=== PATIENT | female | born 1970 | race Caucasian/White ===

== ENCOUNTER 2017-01-11 18:44 | Emergency (ER) | payer OTHER ==
[2017-01-11 18:50] VITALS: TEMP 98.4
--- NOTE | 2017-01-11 19:12 | EDPHY ---
H & P Stated Complaint: mj od HPI/ROS: CHIEF COMPLAINT: Marijuana ingestion, feeling "weird" HISTORY OF PRESENT ILLNESS: Patient arrives by EMS. She is seen at time arrival. She admits to 20 mg of ingestion of marijuana over a period of 4 hours. She took 10 mg of indica marijuana around 12:30p.m. She took 2 additional ingestions over the next 2-3 hours for a total of 20 mg. She said it gradually had her and she began "to feel really weird" at dinner. Difficult for her to quantify or qualify the symptoms. She is having difficulty actually describing how she feels. She does deny headache or chest pain. She denies any unilateral complaints. She denies any previous use of marijuana. She is concerned as she feels unusual and her is feeling worse than she is. No other associated complaints or modifying factors. REVIEW OF SYSTEMS: Ten systems reviewed and are negative unless otherwise noted in the HPI PAST MEDICAL HISTORY: Anxiety PAST SURGICAL HISTORY: None SOCIAL HISTORY: Nonsmoker. Occasional alcohol. Lives in [facility] FAMILY HISTORY: Noncontributory EXAMINATION General Appearance: Alert, no distress Head: normocephalic, atraumatic Eyes: Pupils equal and round, no conjunctival pallor or injection ENT, Mouth: Mucous membranes moist Neck: Normal inspection, supple, non-tender Respiratory: Lungs are clear to auscultation Cardiovascular: Tachycardic rate and regular rhythm. No murmur. Pulses intact distally Gastrointestinal: Abdomen is soft and nontender Back: non-tender, no bony abnormalities Neurological: GCS 15. A&O, nonfocal, normal gait. No pronator drift. No dysmetria. Normal mental status. Skin: Warm and dry, no rash Extremities: Nontender, no pedal edema Psychiatric: Mood and affect normal DIFFERENTIAL DIAGNOSES: Including but not limited to marijuana ingestion, marijuana intoxication, marijuana overdose MDM: 7:00 p.m. Acute marijuana intoxication. Patient reports 20 mg indicate ingestion over a period of 4 hours. She is naive to marijuana. She is in no acute distress with mild tachycardia. She reports feeling somewhat anxious but denies any other specific complaints. Vital signs are within normal limits with mild tachycardia. She is declining Ativan at this time. She is resting comfortably without delirium. 7:30 p.m. I have re-evaluated the patient. She reports that she is feeling more anxious at this time. She has agreed to Ativan 1 mg IV push. She is in no acute distress. Vital signs remained stable. 8:20 p.m. I have re-evaluated the patient. She says she is starting to feel better after the Ativan. She would like to be discharged so that she may be with her . She is in no acute distress. She is awake alert and conversing appropriately. She was brought by EMS and they plan to take a cab back to the hotel. I do feel she is stable for discharge home at this time. Source: Patient, RN/MD Exam Limitations: No limitations - Personal History LMP (Females 10-55): 8-14 Days Ago Current Tetanus/Diphtheria Vaccine: Yes Current Tetanus Diphtheria and Acellular Pertussis (TDAP): Yes Tetanus Vaccine Date: 2008 - Medical/Surgical History Hx Asthma: No Hx Chronic Respiratory Disease: No Hx Diabetes: No Hx Cardiac Disease: No Hx Renal Disease: No Hx Cirrhosis: No Hx Alcoholism: No Hx HIV/AIDS: No Hx Splenectomy or Spleen Trauma: No Other PMH: JOHNNY, anxiety, depression - Social History Smoking Status: Never smoked Constitutional: Initial Vital Signs Temperature (C) 98.4 F 01/11/17 18:44 Heart Rate 114 H 01/11/17 18:44 Respiratory Rate 16 01/11/17 18:44 Blood Pressure 143/89 H 01/11/17 18:44 O2 Sat (%) 95 01/11/17 18:44 O2 Delivery Mode Room Air Allergies/Adverse Reactions: metoclopramide HCl [From Reglan] Allergy (Verified 03/28/10 18:44) Medical Decision Making - Data Points Medications Given: Discontinued Medications Sodium Chloride (Ns) 1,000 mls @ 0 mls/hr IV EDNOW ONE; Wide Open PRN Reason: Protocol Stop: 01/11/17 19:34 Last Admin: 01/11/17 19:52 Dose: 1,000 mls Lorazepam (Ativan Injection) 1 mg IVP EDNOW ONE Stop: 01/11/17 19:34 Last Admin: 01/11/17 19:52 Dose: 1 mg Departure - Departure Disposition: Home, Routine, Self-Care Clinical Impression: Accidental marijuana overdose Qualifiers: Encounter type: initial encounter Qualified Code(s): T40.7X1A - Poisoning by cannabis (derivatives), accidental (unintentional), initial encounter Marijuana intoxication Qualifiers: Complication of substance-induced condition: uncomplicated Qualified Code(s): F12.920 - Cannabis use, unspecified with intoxication, uncomplicated Condition: Good Instructions: Medicinal Use of Cannabis (ED) Additional Instructions: 1. Increase fluid intake 2. Avoid driving for the next 8-12 hours 3. Follow up with primary care physician Referrals: Patient,NotPresent [Unknown] - As per Instructions Ina Guzmán MD [[facility] [place] Primary Care Provider] - As per Instructions
[2017-01-11] MEDS ORDERED: NS 1,000 ML IV ONE (19:33)
[2017-01-11] MEDS ORDERED: LORazepam 2 MG/ML INJ IVP ONE (19:33)
[2017-01-11 20:31] VITALS: BP 135/86; PULSE 100; RESP 14; O2SAT 94
== END 2017-01-11 20:31 | disposition home or self-care (01) ==
LOC: EDUNIT#
PROC: 3E0337Z Introduction of Electrolytic and Water Balance Substance into Peripheral Vein, Percutaneous Approach (ICD-10-PCS; principal; 2017-01-11)
DX: T40.7X1A Poisoning by cannabis (derivatives), accidental (unintentional), initial encounter (principal); E86.9 Volume depletion, unspecified
CPT/HCPCS: 96374; J2060